=== PATIENT | female | born 1985 | race African-American/Black ===

== ENCOUNTER 2019-04-13 15:23 | Emergency (ER) | payer BC, MEDICAID ==
[~2019-04-13] VITALS: Ht 165.1 cm; Wt 92.1 kg
[2019-04-13] MEDS ORDERED: HYDROCHLOROTHIA25 MG ORAL (15:39)
[2019-04-13] MEDS ORDERED: BENAZEPRIL HCL10 MG ORAL (15:39)
[2019-04-13 15:41] VITALS: BP 128/80
--- NOTE | 2019-04-13 15:43 | NUR ---
ED Nurse Note: Pt was brought in by ambulance picked up from a [facility] d/t RUDk abd pain started today. Pt reports that she has not have bowel movement x 3 days. Pt still able to pass gas. AAO x4 and ambulatory with non labored breathing. Family member at the bed side.
[2019-04-13] MEDS ORDERED: Fleet's Enema 133ml RECTAL ONE (15:45)
--- NOTE | 2019-04-13 15:46 | Emergency Room Report ---
History of Present Illness General Chief Complaint: Abdominal Pain Source: Patient Present Illness HPI Patient is a 33-year-old female presents after increased abdominal pain. Patient reports having a small amount of abdominal discomfort. She reports having decreased bowel movements of the past few days. She denies any fever. She reports having some epigastric and left lower quadrant pain. She denies any fever. She denies any recent surgeries. She had previous history of hypertension is currently taking benazepril. She also takes Hydrochlorthiazide. She denies any other medications. Allergies: Coded Allergies: No Known Allergies (Unverified , 04/13/19) Patient History Past Medical History: see triage record Last Menstrual Period: 04/10 Reviewed Nursing Documentation: PMH: Agreed; PSxH: Agreed Nursing Documentation-PMH Past Medical History: No History, Except For Hx Cardiac Problems: No Hx Hypertension: Yes Hx Pacemaker: No Hx Asthma: No Hx COPD: No Hx Diabetes: No Hx Cancer: No Hx Gastrointestinal Problems: No Hx Dialysis: No History Of Psychiatric Problem: No Hx Neurological Problems: No Hx Cerebrovascular Accident: No Hx Seizures: No Review of Systems All Other Systems: negative except mentioned in HPI Physical Exam Vital Signs Date Time Temp Pulse Resp B/P (MAP) Pulse Ox O2 Delivery O2 Flow Rate FiO2 04/13/19 15:36 98.4 110 18 130/82 (98) 99 Room Air Sp02 EP Interpretation: reviewed, normal General Appearance: normal inspection, well appearing, no apparent distress, alert, GCS 15 Head: atraumatic ENT: normal ENT inspection, hearing grossly normal, normal voice Neck: normal inspection, full range of motion, supple, no bony tend Respiratory: normal inspection, lungs clear, normal breath sounds, no respiratory distress, no retraction, no wheezing Cardiovascular #1: regular rate, rhythm, no edema Gastrointestinal: normal inspection, normal bowel sounds, non tender, soft, no guarding, no hernia Genitourinary: no CVA tenderness Musculoskeletal: normal inspection, back normal, normal range of motion Neurologic: normal inspection, alert, oriented x3, responsive, 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 Differential diagnoses included ischemic bowel, appendicitis, perforated viscus, abdominal aortic aneurysm, inferior myocardial infarction, viral gastroenteritis among others. patient has a benign exam and does not appear to require any imaging or laboratory testing at this time. Patient appears to have a history of constipation and this appears to be some worsening of her chronic constipation. Patient was given enema in the emergency department. She was noted to have normal bowel movement improvement in her abdominal pain. Patient appears to be stable for close outpatient follow up. Patient appears to be stable for discharge and follow-up with her primary care physician. She is given prescription for stool softeners. Labs Test 04/13/19 15:50 Urine HCG, Qualitative Negative (NEGATIVE) Last Vital Signs Date Time Temp Pulse Resp B/P (MAP) Pulse Ox O2 Delivery O2 Flow Rate FiO2 04/13/19 15:41 98 15 Room Air 04/13/19 15:41 98.4 128/80 99 Status: improved Disposition: HOME, SELF-CARE Condition: Stable Scripts Docusate Sodium* (COLACE*) 100 Mg Capsule 100 MG ORAL THREE TIMES A DAY, #30 CAP Prov: Eligio Pearce MD 04/13/19 Eligio Pearce MD Apr 13, 2019 15:46
--- NOTE | 2019-04-13 15:55 | NUR ---
ED Nurse Note: Collected urine then sent.
[2019-04-13] MEDS ORDERED: COLACE100 MG ORAL (16:12)
--- NOTE | 2019-04-13 16:14 | NUR ---
ED Nurse Note: Pt reports that she passed a large amount of bowel movement after the enema. Pt still has mild pain and has urge to go. ER MD notified.
[2019-04-13 16:20] VITALS: BP 130/82
--- NOTE | 2019-04-13 16:20 | NUR ---
ER DISCHARGE NOTE: Patient is cleared to be discharged per ERMD, pt is aox4, on room air, with stable vital signs. pt was given dc and prescription instructions, pt was able to verbalize understanding, pt id band removed. pt is able to ambulate with steady gait. pt took all belongings and left with her family member.
== END 2019-04-13 16:20 | disposition home or self-care (01) ==
LOC: EDBD 15:23 → EMR 15:49
DX: K59.00 Constipation, unspecified (principal); I10 Essential (primary) hypertension
CPT/HCPCS: 81025; Z7502; 99282